=== PATIENT | female | born 1990 | race African-American/Black ===

== ENCOUNTER 2019-04-24 16:05 | Emergency (ER) | payer MEDICAID ==
[~2019-04-24] VITALS: Ht 165.1 cm; Wt 93.0 kg
--- NOTE | 2019-04-24 18:08 | PHYS DOC ---
Adult General Chief Complaint Chief Complaint: ABDOMINAL PAIN HPI HPI Patient is a 28 year old female who presents stating that her scar developed abscess. She woke up yesterday and started hurting and then it got bigger and popped and some pus started coming out. Rates her pain as 8 out of 10 in severity. Review of Systems Review of Systems Constitutional: Denies fever or chills [] Eyes: Denies change in visual acuity, redness, or eye pain [] HENT: Denies nasal congestion or sore throat [] Respiratory: Denies cough or shortness of breath [] Cardiovascular: No additional information not addressed in HPI [] GI: Denies abdominal pain, nausea, vomiting, bloody stools or diarrhea [] : Denies dysuria or hematuria [] Musculoskeletal: Denies back pain or joint pain [] Integument: Reports abscess to site. Neurologic: Denies headache, focal weakness or sensory changes [] Endocrine: Denies polyuria or polydipsia [] Complete systems were reviewed and found to be within normal limits, except as documented in this note. Current Medications Current Medications Current Medications Medications (Trade) Dose Ordered Sig/Ran Start Time Stop Time Status Last Admin Dose Admin Lidocaine HCl 20 ml 1X ONCE 04/24/19 18:15 04/24/19 18:33 DC 04/24/19 18:54 20 ML Allergies Allergies Allergies Coded Allergies Type Severity Reaction Last Updated Verified Sulfa (Sulfonamide Antibiotics) Allergy Intermediate Hives 04/24/19 Yes Physical Exam Physical Exam Constitutional: Well developed, well nourished, no acute distress, non-toxic appearance. [] HENT: Normocephalic, atraumatic, bilateral external ears normal, oropharynx moist, no oral exudates, nose normal. [] Eyes: PERRLA, EOMI, conjunctiva normal, no discharge. [] Neck: Normal range of motion, no tenderness, supple, no stridor. [] Cardiovascular:Heart rate regular rhythm, no murmur [] Lungs & Thorax: Bilateral breath sounds clear to auscultation [] Abdomen: Bowel sounds normal, soft, no tenderness, no masses, no pulsatile masses. [] Skin: abscess to scar. Back: No tenderness, no CVA tenderness. [] Extremities: No tenderness, no cyanosis, no clubbing, ROM intact, no edema. [] Neurologic: Alert and oriented X 3, normal motor function, normal sensory function, no focal deficits noted. [] Psychologic: Affect normal, judgement normal, mood normal. [] Current Patient Data Vital Signs Vital Signs Date Time Temp Pulse Resp B/P (MAP) Pulse Ox O2 Delivery O2 Flow Rate FiO2 04/24/19 17:45 99.2 87 14 144/94 (111) 99 Room Air 99.2 Lab Values Laboratory Tests Test 04/24/19 17:48 POC Urine HCG, Qualitative Hcg negative (Negative) EKG EKG [] Radiology/Procedures Radiology/Procedures Indication: abscess Procedure: The patient was positioned appropriately. Local anesthesia was 2% lidocaine. An incision was then made over the apex of the lesion and exudate material was expressed. The drainage cavity was irrigated and packed with sterile gauze. The patient�s tetanus status was already updated. The patient tolerated the procedure well. Complications: none.[] Course & Med Decision Making Course & Med Decision Making Pertinent Labs and Imaging studies reviewed. (See chart for details) Has an abscess where her was perform. Will perform I/D. Performed I/D and packed. Will place on Keflex and discharge home to return in 2 days to have packing removed. Dragon Disclaimer Dragon Disclaimer This electronic medical record was generated, in whole or in part, using a voice recognition dictation system. Departure Departure Impression: Primary Impression: Abscess Disposition: 01 HOME, SELF-CARE Condition: STABLE Referrals: NO PCP (PCP) Patient Instructions: Abscess, Abscess, Care After Additional Instructions: Thank you for visiting [facility]. We appreciate you trusting us with your care. If any additional problems come up don't hesitate to return to visit us. Please follow up with your primary care provider so they can plan additional care if needed and know about the problem that you had. If symptoms worsen come back to the Emergency Department. Any concerning symptoms that start such as chest pain, shortness of air, weakness or numbness on one side of the body, running high fevers or any other concerning symptoms return to the ER. Please return to have packing removed in 2 days. You have been prescribed an antibiotic today to help fight your infection. Please take all of the antibiotic as directed. If after 48 hours the infection is not improving, please return for more care. If the infection worsens, return to ER for additional care. Scripts Cephalexin (KEFLEX) 500 Mg Capsule 1 CAP PO BID for 7 Days, #14 CAP Prov: AIDAN COLLAZO APRN 04/24/19 AIDAN COLLAZO APRN Apr 24, 2019 18:08
[2019-04-24] MEDS ORDERED: LIDOCAINE 2% 20 ML VIAL. IJ ONE (18:15)
[2019-04-24] MEDS ORDERED: CEPH-264 PO (19:21)
[2019-04-24 19:30] VITALS: BP 153/81
[2019-04-26] MEDS ORDERED: HYDR-3164 PO (19:39)
== END 2019-04-24 19:50 | disposition home or self-care (01) ==
LOC: ER 16:05
DX: O86.00 Infection of obstetric surgical wound, unspecified (principal); Z88.2 Allergy status to sulfonamides
CPT/HCPCS: 10060; 81025; 99283; J2001

== ENCOUNTER 2019-09-16 12:59 | Emergency (ER) | payer BC, MEDICAID ==
[~2019-09-16 12:59] MED LIST: CEPH-264 PO; HYDR-3164 PO
[2019-09-16 13:51] LABS: BILIRUBIN,URINE NEGATIVE (NEG); CLARITY,URINE CLEAR; COLOR,URINE RED; NITRITE,URINE NEGATIVE (NEG); PH,URINE 6.5; PROTEIN,URINE 30 mg/dL (NEG-TRACE); UROBILINOGEN,URINE 0.2 mg/dL (0.2 mg/dL)
[2019-09-16 14:05] LABS: BASO % 1 % (0-3); EOS # 0.3 x10^3/uL (0.0-0.7); EOS % 3 % (0-3); HEMATOCRIT 37.7 % (36.0-47.0); HEMOGLOBIN 12.7 g/dL (12.0-15.5); LYMPH # 1.8 x10^3/uL (1.0-4.8); LYMPH % 19 % (24-48); MEAN CORPUSCULAR HEMOGLOBIN 32 pg (25-35); MEAN CORPUSCULAR HGB CONC 34 g/dL (31-37); MEAN CORPUSCULAR VOLUME 94 fL (79-100); MONO # 1.1 x10^3/uL (0.0-1.1); MONO % 11 % (0-9); NEUT # 6.2 x10^3/uL (1.8-7.7); NEUT % 66 % (31-73); PLATELET COUNT 244 x10^3/uL (140-400); RED BLOOD COUNT 4.03 x10^6/uL (3.50-5.40); RED CELL DISTRIBUTION WIDTH 14.1 % (11.5-14.5); WHITE BLOOD COUNT 9.4 x10^3/uL (4.0-11.0)
[2019-09-16 14:12] LABS: CALCIUM 9.3 mg/dL (8.5-10.1); CREATININE 0.8 mg/dL (0.6-1.0); GFR 103.3; POTASSIUM 4.4 mmol/L (3.5-5.1)
[2019-09-16 14:16] LABS: ALBUMIN 3.6 g/dL (3.4-5.0); ALBUMIN/GLOBULIN RATIO 1.1 (1.0-1.7); TOTAL BILIRUBIN 0.2 mg/dL (0.2-1.0)
--- NOTE | 2019-09-16 14:29 | RAD ---
OB ultrasound less than 14 weeks to include transabdominal and transvaginal imaging 09/16/2019 CLINICAL HISTORY: First trimester with vaginal bleeding. TECHNIQUE: Using the distended urinary bladder as a sonographic window, a real-time ultrasound examination of the pelvis was performed. Additionally in an attempt to better evaluate the uterus and adnexa, a transvaginal ultrasound study was performed. Multiple images were obtained. The uterus is within normal limits in size. It measures 11.9 x 6.4 x 5.3 cm in longitudinal, transverse, and AP dimensions. No focal abnormality of the uterus is seen. The endometrial echo complex is heterogeneous. It measures 1.3 cm in thickness. No gestational sac is seen within the endometrial canal of the uterus. Both ovaries are within normal limits in size and echogenicity. The right ovary measures 3.4 x 1.9 x 1.7 cm in size. The left ovary measures 4.4 x 3.1 x 2.0 cm in size. A very small amount of free fluid is seen within the pelvis. No adnexal mass is seen. IMPRESSION: Essentially negative pelvic ultrasound. No IUP is seen. This finding could be seen with a very early IUP, missed spontaneous or possibly due to an occult ectopic . Clinical correlation and correlation with the patient's serial beta hCG level is recommended. Electronically signed by: Deyvi Murray MD (09/16/2019 2:26 PM) [facility]
[2019-09-16] MEDS ORDERED: ACETAMINOPHEN 500 MG TABLET PO ONE (14:30)
[2019-09-16 14:31] LABS: SQUAMOUS EPITHELIAL CELL,UR MOD /LPF
[2019-09-16 14:32] LABS: RBC,URINE TNTC /HPF (0-2)
[2019-09-16 14:33] LABS: BACTERIA,URINE 0 /HPF (0-FEW)
--- NOTE | 2019-09-16 14:47 | PHYS DOC ---
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 Review of Systems Review of Systems GI: Cramping abdominal pain, denies nausea, vomiting, bloody stools or diarrhea [] : Vaginal bleeding. Denies dysuria or hematuria [] All other systems were reviewed and found to be within normal limits, except as documented in this note. Current Medications Current Medications Current Medications Medications (Trade) Dose Ordered Sig/Ran Start Time Stop Time Status Last Admin Dose Admin Acetaminophen (Tylenol) 1,000 mg 1X ONCE 09/16/19 14:30 09/16/19 14:32 DC 09/16/19 15:21 1,000 MG Allergies Allergies Allergies Coded Allergies Type Severity Reaction Last Updated Verified Sulfa (Sulfonamide Antibiotics) Allergy Intermediate Hives 04/24/19 Yes Physical Exam Physical Exam Constitutional: Well developed, well nourished, no acute distress, non-toxic appearance. [] HENT: Normocephalic, atraumatic, bilateral external ears normal, oropharynx moist, no oral exudates, nose normal. [] Eyes: PERRLA, EOMI, conjunctiva normal, no discharge. [] Neck: Normal range of motion, no tenderness, supple, no stridor. [] Cardiovascular:Heart rate regular rhythm, no murmur [] Lungs & Thorax: Bilateral breath sounds clear to auscultation [] Abdomen: Bowel sounds normal, soft, no tenderness, no masses, no pulsatile mass es. [] Skin: Warm, dry, no erythema, no rash. [] Back: No tenderness, no CVA tenderness. [] Extremities: No tenderness, no cyanosis, no clubbing, ROM intact, no edema. [] Neurologic: Alert and oriented X 3, normal motor function, normal sensory function, no focal deficits noted. [] Psychologic: Affect normal, judgement normal, mood normal. Normal Physical Exam[] Current Patient Data Vital Signs Vital Signs Date Time Temp Pulse Resp B/P (MAP) Pulse Ox O2 Delivery O2 Flow Rate FiO2 1/18/20 13:13 98.7 100 20 153/75 (101) 100 Room Air 98.7 Lab Values Laboratory Tests Test 09/16/19 13:11 09/16/19 13:15 09/16/19 13:48 Urine Collection Type Unknown Urine Color Red Urine Clarity Clear Urine pH 6.5 Urine Specific [place] 1.025 Urine Protein 30 mg/dL (NEG-TRACE) Urine Glucose (UA) Negative mg/dL (NEG) Urine Ketones (Stick) Trace mg/dL (NEG) Urine Blood Large (NEG) Urine Nitrite Negative (NEG) Urine Bilirubin Negative (NEG) Urine Urobilinogen Dipstick 0.2 mg/dL (0.2 mg/dL) Urine Leukocyte Esterase Small (NEG) Urine RBC Tntc /HPF (0-2) Urine WBC 11-20 /HPF (0-4) Urine Squamous Epithelial Cells Mod /LPF Urine Bacteria 0 /HPF (0-FEW) Urine Mucus Marked /LPF POC Urine HCG, Qualitative Hcg positive (Negative) White Blood Count 9.4 x10^3/uL (4.0-11.0) Red Blood Count 4.03 x10^6/uL (3.50-5.40) Hemoglobin 12.7 g/dL (12.0-15.5) Hematocrit 37.7 % (36.0-47.0) Mean Corpuscular Volume 94 fL (79-100) Mean Corpuscular Hemoglobin 32 pg (25-35) Mean Corpuscular Hemoglobin Concent 34 g/dL (31-37) Red Cell Distribution Width 14.1 % (11.5-14.5) Platelet Count 244 x10^3/uL (140-400) Neutrophils (%) (Auto) 66 % (31-73) Lymphocytes (%) (Auto) 19 % (24-48) L Monocytes (%) (Auto) 11 % (0-9) H Eosinophils (%) (Auto) 3 % (0-3) Basophils (%) (Auto) 1 % (0-3) Neutrophils # (Auto) 6.2 x10^3/uL (1.8-7.7) Lymphocytes # (Auto) 1.8 x10^3/uL (1.0-4.8) Monocytes # (Auto) 1.1 x10^3/uL (0.0-1.1) Eosinophils # (Auto) 0.3 x10^3/uL (0.0-0.7) Basophils # (Auto) 0.0 x10^3/uL (0.0-0.2) Maternal Serum HCG Beta Subunit 54349 mIU/mL (0-5) H Sodium Level 140 mmol/L (136-145) Potassium Level 4.4 mmol/L (3.5-5.1) Chloride Level 103 mmol/L (98-107) Carbon Dioxide Level 27 mmol/L (21-32) Anion Gap 10 (6-14) Blood Urea Nitrogen 6 mg/dL (7-20) L Creatinine 0.8 mg/dL (0.6-1.0) Estimated GFR (Cockcroft-Gault) 103.3 BUN/Creatinine Ratio 8 (6-20) Glucose Level 83 mg/dL (70-99) Calcium Level 9.3 mg/dL (8.5-10.1) Total Bilirubin 0.2 mg/dL (0.2-1.0) Aspartate Amino Transferase (AST) 18 U/L (15-37) Alanine Aminotransferase (ALT) 20 U/L (14-59) Alkaline Phosphatase 39 U/L (46-116) L Total Protein 7.0 g/dL (6.4-8.2) Albumin 3.6 g/dL (3.4-5.0) Albumin/Globulin Ratio 1.1 (1.0-1.7) Laboratory Tests 09/16/19 13:48 Laboratory Tests 09/16/19 13:48 EKG EKG [] Radiology/Procedures Radiology/Procedures [] Impressions: [facility] [address] [place] [address] IMAGING REPORT Signed PATIENT: RUBEN SOLIZ ACCOUNT: [id number] : 1990 LOCATION: ER AGE: 29 SEX: F EXAM STATUS: PRE ER ORD. PHYSICIAN: CAMRON ZHOU APRN REASON: vag bleed in PROCEDURE: OB <14 WKS W/TV OB ultrasound less than 14 weeks to include transabdominal and transvaginal imaging 09/16/2019 CLINICAL HISTORY: First trimester with vaginal bleeding. TECHNIQUE: Using the distended urinary bladder as a sonographic window, a real-time ultrasound examination of the pelvis was performed. Additionally in an attempt to better evaluate the uterus and adnexa, a transvaginal ultrasound study was performed. Multiple images were obtained. The uterus is within normal limits in size. It measures 11.9 x 6.4 x 5.3 cm in longitudinal, transverse, and AP dimensions. No focal abnormality of the uterus is seen. The endometrial echo complex is heterogeneous. It measures 1.3 cm in thickness. No gestational sac is seen within the endometrial canal of the uterus. Both ovaries are within normal limits in size and echogenicity. The right ovary measures 3.4 x 1.9 x 1.7 cm in size. The left ovary measures 4.4 x 3.1 x 2.0 cm in size. A very small amount of free fluid is seen within the pelvis. No adnexal mass is seen. IMPRESSION: Essentially negative pelvic ultrasound. No IUP is seen. This finding could be seen with a very early IUP, missed spontaneous or possibly due to an occult ectopic . Clinical correlation and correlation with the patient's serial beta hCG level is recommended. Electronically signed by: Deyvi Soler MD (09/16/2019 2:26 PM) [facility] DICTATED and SIGNED BY: DEYVI SOLER MD DATE: 09/16/191425 Course & Med Decision Making Course & Med Decision Making Patient states she is approximately 7 weeks . She states that at 2:00 is when she began having abdominal cramping and since then has went through 2 pads with bright red blood and clots. Abdomen soft and nontender. Skin pink warm and dry. Alert and oriented. Ambulatory with steady gait. Speaks in full clear sentences. Vital signs within normal limits. Patient is tearful. She rates her pain a 6 out of 10. Patient states she took 4 mg of ibuprofen in the cramping started. I have educated the patient that since she is she should not take ibuprofen and only Tylenol. Patient does have a upcoming scheduled OB appointment which will be her first appointment next week. She denies recent fever, dysuria symptoms, Sexually transmitted disease concerns, abnormal vaginal discharge, headache, dizziness, syncope, chest pain, shortness of air, numbness or tingling. Pelvic Exam: Photographic Laboratory Technician present Abdomen: Nontender External Genitalia: Normal Skin Speculum: Normal vaginal mucosa, Blood cervical discharge, No clots, Cervix closed Bimanual: No adnexal masses or tenderness, No CMT A negative blood type. Rhogam ordered. IMPRESSION: Essentially negative pelvic ultrasound. No IUP is seen. This finding could be seen with a very early IUP, missed spontaneous or possibly due to an occult ectopic . Clinical correlation and correlation with the patient's serial beta hCG level is recommended. Dragon Disclaimer Dragon Disclaimer This electronic medical record was generated, in whole or in part, using a voice recognition dictation system. Departure Departure Impression: Primary Impression: Vaginal bleeding during Disposition: HOME, SELF-CARE Condition: STABLE Referrals: NO PCP (PCP) Patient Instructions: Vaginal Bleeding During , [id number] Additional Instructions: Follow-up with your OB doctor as scheduled. Take Tylenol for pain. CAMRON ZHOU APRN Sep 16, 2019 14:47
[2019-09-16 16:37] VITALS: BP 130/82
[2019-09-16 17:00] VITALS: BP 103/53
[2019-09-19 19:09] LABS: GC PROBE Negative (Negative)
== END 2019-09-16 16:41 | disposition home or self-care (01) ==
LOC: ER 12:59
DX: O46.91 Antepartum hemorrhage, unspecified, first trimester (principal); R10.9 Unspecified abdominal pain; Z98.890 Other specified postprocedural states; Z88.2 Allergy status to sulfonamides; Z3A.01 Less than 8 weeks gestation of pregnancy
CPT/HCPCS: 36415; 76801; 76817; 80053; 81001; 81025; 84702; 85025; 86850; 86900; 86901; 87086; 87491; 87591; 99285; J2791; Q0111

== ENCOUNTER 2019-10-12 10:19 | Emergency (ER) | payer BC ==
[~2019-10-12] VITALS: Ht 167.6 cm; Wt 95.4 kg
--- NOTE | 2019-10-12 10:56 | PHYS DOC ---
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 The patient was seen on September 16 this ER and told that she had a threatened miscarriage. The patient then went to her REGISTRY NURSE and was given the option of having it happen naturally are getting medication. She chose the natural route. Last week she's been having heavy amounts of vaginal bleeding and abdominal pain. The patient rates her pain as 8 out of 10 in severity. The patient is also having nausea, vomiting, diarrh ea. Her last menstrual period was on July 24. The patient also states she's been having dysuria. [id number]. Review of Systems Review of Systems Constitutional: Denies fever or chills [] Eyes: Denies change in visual acuity, redness, or eye pain [] HENT: Denies nasal congestion or sore throat [] Respiratory: Denies cough or shortness of breath [] Cardiovascular: No additional information not addressed in HPI [] GI: Reports abdominal pain, nausea, vomiting,and diarrhea [] : Reports dysuria and vaginal bleeding. Musculoskeletal: Denies back pain or joint pain [] Integument: Denies rash or skin lesions [] Neurologic: Denies headache, focal weakness or sensory changes [] Endocrine: Denies polyuria or polydipsia [] Complete systems were reviewed and found to be within normal limits, except as documented in this note. Current Medications Current Medications Current Medications Medications (Trade) Dose Ordered Sig/Ran Start Time Stop Time Status Last Admin Dose Admin Magnesium Sulfate/ Dextrose 100 ml @ 100 mls/hr 1X ONCE 10/12/19 12:15 10/12/19 13:14 10/12/19 12:09 100 MLS/HR Morphine Sulfate (Morphine Sulfate) 5 mg 1X STAT 10/12/19 12:32 10/12/19 12:34 DC Ondansetron HCl (Zofran) 4 mg 1X ONCE 10/12/19 11:00 10/12/19 11:01 DC 10/12/19 11:29 4 MG Sodium Chloride 1,000 ml @ 1,000 mls/hr 1X ONCE 10/12/19 11:00 10/12/19 11:59 DC 10/12/19 11:30 1,000 MLS/HR Allergies Allergies Allergies Coded Allergies Type Severity Reaction Last Updated Verified Sulfa (Sulfonamide Antibiotics) Allergy Intermediate Hives 04/24/19 Yes Physical Exam Physical Exam Constitutional: Well developed, well nourished, no acute distress, non-toxic appearance. [] HENT: Normocephalic, atraumatic, bilateral external ears normal, oropharynx moist, no oral exudates, nose normal. [] Eyes: PERRLA, EOMI, conjunctiva normal, no discharge. [] Neck: Normal range of motion, no tenderness, supple, no stridor. [] Cardiovascular:Heart rate regular rhythm, no murmur [] Lungs & Thorax: Bilateral breath sounds clear to auscultation [] Abdomen: Bowel sounds normal, soft, LLQ tenderness, no masses, no pulsatile masses. [] Skin: Warm, dry, no erythema, no rash. [] Neurologic: Alert and oriented X 3, normal motor function, normal sensory function, no focal deficits noted. [] Psychologic: Affect normal, judgement normal, mood normal. [] Current Patient Data Vital Signs Vital Signs Date Time Temp Pulse Resp B/P (MAP) Pulse Ox O2 Delivery O2 Flow Rate FiO2 10/12/19 11:06 80 124/77 (93) 97 Room Air 10/12/19 10:36 98.9 20 98.9 Lab Values Laboratory Tests Test 10/12/19 10:34 10/12/19 10:53 Urine Collection Type Unknown Urine Color Red Urine Clarity Bloody Urine pH Urine Specific [place] Urine Protein mg/dL (NEG-TRACE) Urine Glucose (UA) mg/dL (NEG) Urine Ketones (Stick) mg/dL (NEG) Urine Blood (NEG) Urine Nitrite (NEG) Urine Bilirubin (NEG) Urine Urobilinogen Dipstick mg/dL (0.2 mg/dL) Urine Leukocyte Esterase (NEG) Urine RBC Tntc /HPF (0-2) Urine WBC 0 /HPF (0-4) Urine Bacteria 0 /HPF (0-FEW) Urine Mucus Mod /LPF White Blood Count 7.0 x10^3/uL (4.0-11.0) Red Blood Count 3.87 x10^6/uL (3.50-5.40) Hemoglobin 12.1 g/dL (12.0-15.5) Hematocrit 35.8 % (36.0-47.0) L Mean Corpuscular Volume 93 fL (79-100) Mean Corpuscular Hemoglobin 31 pg (25-35) Mean Corpuscular Hemoglobin Concent 34 g/dL (31-37) Red Cell Distribution Width 14.5 % (11.5-14.5) Platelet Count 310 x10^3/uL (140-400) Neutrophils (%) (Auto) 64 % (31-73) Lymphocytes (%) (Auto) 25 % (24-48) Monocytes (%) (Auto) 8 % (0-9) Eosinophils (%) (Auto) 3 % (0-3) Basophils (%) (Auto) 0 % (0-3) Neutrophils # (Auto) 4.5 x10^3/uL (1.8-7.7) Lymphocytes # (Auto) 1.7 x10^3/uL (1.0-4.8) Monocytes # (Auto) 0.6 x10^3/uL (0.0-1.1) Eosinophils # (Auto) 0.2 x10^3/uL (0.0-0.7) Basophils # (Auto) 0.0 x10^3/uL (0.0-0.2) Maternal Serum HCG Beta Subunit 208 mIU/mL (0-5) H Sodium Level 140 mmol/L (136-145) Potassium Level 3.9 mmol/L (3.5-5.1) Chloride Level 104 mmol/L (98-107) Carbon Dioxide Level 26 mmol/L (21-32) Anion Gap 10 (6-14) Blood Urea Nitrogen 7 mg/dL (7-20) Creatinine 0.8 mg/dL (0.6-1.0) Estimated GFR (Cockcroft-Gault) 103.3 BUN/Creatinine Ratio 9 (6-20) Glucose Level 90 mg/dL (70-99) Lactic Acid Level 0.5 mmol/L (0.4-2.0) Calcium Level 9.0 mg/dL (8.5-10.1) Magnesium Level 1.6 mg/dL (1.8-2.4) L Total Bilirubin 0.2 mg/dL (0.2-1.0) Aspartate Amino Transferase (AST) 11 U/L (15-37) L Alanine Aminotransferase (ALT) 14 U/L (14-59) Alkaline Phosphatase 40 U/L (46-116) L Total Protein 7.4 g/dL (6.4-8.2) Albumin 3.8 g/dL (3.4-5.0) Albumin/Globulin Ratio 1.1 (1.0-1.7) Laboratory Tests 10/12/19 10:53 Laboratory Tests 10/12/19 10:53 EKG EKG [] Radiology/Procedures Radiology/Procedures [][facility] [address] [place], [place] [id number] IMAGING REPORT Signed PATIENT: RUBEN SOLIZ ACCOUNT: [id number] : 1990 LOCATION: ER AGE: 29 SEX: F EXAM STATUS: REG ER ORD. PHYSICIAN: AIDAN COLLAZO APRN REASON: vaginal bleeding, abd pain (LLQ) PROCEDURE: OB <14 WKS W/TV Transabdominal and transvaginal sonography of the pelvis-OB ultrasound study less than 14 weeks Clinical indications: Vaginal bleeding. Left lower quadrant abdominal pain. The patient states positive test. COMPARISON: September 16, 2019. Transabdominal sonography: Uterus is anteverted in position. Endometrial canal is poorly visualized due to a relatively empty urinary bladder. The right ovary is not visualized. Therefore, transvaginal sonography will be performed. The left ovary is visualized and measures 3.5 cm and 2.1 cm and 3.0 cm in size and is normal. Color Doppler flow is seen within left ovary. Transvaginal sonography: The endometrial canal is echogenic and thickened measuring up to 17 mm. Small cysts are seen within it. Hyperemia is evident. This was seen previously and measured 13 mm. No intrauterine gestational sac or fetus or heartbeat is seen. There is a small 14 mm fibroid of the mid body of the left side of the uterus. No free fluid is seen within the cul-de-sac. Nabothian cyst of the cervix is seen. This was seen previously. The right ovary measures 2.4 cm and 2.6 cm and 1.9 cm in size and is normal. Color Doppler flow is seen within the right ovary. The left ovary is not visualized. No adnexal mass is seen. IMPRESSION: Thickened echogenic endometrium with small cysts. This is hypervascular. This may be seen with state and therefore a very early normal or an ectopic or spontaneous are possibilities. Another possibility is trophoblastic disease. This is a strong possibility given the persistent vaginal bleeding and no identified on previous sonogram dated September 16, 2019. Correlation with serial quantitative beta-hCG studies is needed. No adnexal mass is seen. No free fluid is seen within the pelvis. Electronically signed by: Fabián Decker MD (10/12/2019 11:41 AM) [facility] DICTATED and SIGNED BY: FABIÁN DECKER MD DATE: 10/12/19 1141 Course & Med Decision Making Course & Med Decision Making Pertinent Labs and Imaging studies reviewed. (See chart for details) Will get labs, lactic, ultrasound, UA, and give supportive care. Labs shows an Beta HCG of 202 down from 39,000 on Sep 16. Labs are otherwise unremarkable with exception of magnesium of 1.6--Will give magnesium. Blood Type is A negative. Patient was given Rhogam during her last visit. Discussed case with Dr. Batres, OB who suggests putting patient on Doxycycline 100 mg BID x 7 days and Provera 10 mg BID x 5 days. Will d/c to follow up. Dragon Disclaimer Dragon Disclaimer This electronic medical record was generated, in whole or in part, using a voice recognition dictation system. Departure Departure Impression: Primary Impression: Incomplete miscarriage Disposition: 01 HOME, SELF-CARE Condition: STABLE Referrals: NO PCP (PCP) NICCI NEGRON MD Patient Instructions: Incomplete Miscarriage Additional Instructions: Thank you for [facility]. We appreciate you trusting us with your care. If any additional problems come up don't hesitate to return to visit us. Please follow up with your primary care provider so they can plan additional care if needed and know about the problem that you had. If symptoms worsen come back to the Emergency Department. Any concerning symptoms that start such as chest pain, shortness of air, weakness or numbness on one side of the body, running high fevers or any other concerning symptoms return to the ER. Please follow up to have your HCG rechecked. Scripts Hydrocodone/Apap 5-325 (NORCO 5-325 TABLET) 1 Each Tablet 1 TAB PO PRN Q6HRS PRN for PAIN for 3 Days, #10 TAB 0 Refills Prov: AIDAN COLLAZO APRN 10/12/19 Ondansetron (ONDANSETRON ODT) 4 Mg Tab.rapdis 1 TAB PO PRN Q6-8HRS PRN for NAUSEA, #20 TAB Prov: AIDAN COLLAZO APRN 10/12/19 Doxycycline Hyclate (DOXYCYCLINE HYCLATE) 100 Mg Capsule 1 CAP PO BID for 7 Days, #14 CAP Prov: AIDAN COLLAZO APRN 10/12/19 Medroxyprogesterone Acetate (PROVERA) 10 Mg Tablet 1 TAB PO BID for 5 Days, #10 TAB Prov: AIDAN COLLAZO APRN 10/12/19 AIDAN COLLAZO APRN Oct 12, 2019 10:55
[2019-10-12] MEDS ORDERED: IV NORMAL SALINE 1000ML BAG 1,000 ML IV ONE (11:00)
[2019-10-12] MEDS ORDERED: ONDANSETRON PF 4 MG/2 ML VIAL. IV ONE (11:00)
[2019-10-12 11:13] LABS: BASO % 0 % (0-3); EOS # 0.2 x10^3/uL (0.0-0.7); EOS % 3 % (0-3); HEMATOCRIT 35.8 % (36.0-47.0); HEMOGLOBIN 12.1 g/dL (12.0-15.5); LYMPH # 1.7 x10^3/uL (1.0-4.8); LYMPH % 25 % (24-48); MEAN CORPUSCULAR HEMOGLOBIN 31 pg (25-35); MEAN CORPUSCULAR HGB CONC 34 g/dL (31-37); MEAN CORPUSCULAR VOLUME 93 fL (79-100); MONO # 0.6 x10^3/uL (0.0-1.1); MONO % 8 % (0-9); NEUT # 4.5 x10^3/uL (1.8-7.7); NEUT % 64 % (31-73); PLATELET COUNT 310 x10^3/uL (140-400); RED BLOOD COUNT 3.87 x10^6/uL (3.50-5.40); RED CELL DISTRIBUTION WIDTH 14.5 % (11.5-14.5)
[2019-10-12 11:14] LABS: CREATININE 0.8 mg/dL (0.6-1.0); GFR 103.3; POTASSIUM 3.9 mmol/L (3.5-5.1)
[2019-10-12 11:20] LABS: ALBUMIN 3.8 g/dL (3.4-5.0); ALBUMIN/GLOBULIN RATIO 1.1 (1.0-1.7); MAGNESIUM 1.6 mg/dL (1.8-2.4); TOTAL BILIRUBIN 0.2 mg/dL (0.2-1.0); TOTAL PROTEIN 7.4 g/dL (6.4-8.2)
[2019-10-12 11:23] LABS: CLARITY,URINE BLOODY; COLOR,URINE RED
[2019-10-12 11:24] LABS: BACTERIA,URINE 0 /HPF (0-FEW); RBC,URINE TNTC /HPF (0-2); WBC,URINE 0 /HPF (0-4)
--- NOTE | 2019-10-12 11:43 | RAD ---
Transabdominal and transvaginal sonography of the pelvis-OB ultrasound study less than 14 weeks Clinical indications: Vaginal bleeding. Left lower quadrant abdominal pain. The patient states positive test. COMPARISON: September 16, 2019. Transabdominal sonography: Uterus is anteverted in position. Endometrial canal is poorly visualized due to a relatively empty urinary bladder. The right ovary is not visualized. Therefore, transvaginal sonography will be performed. The left ovary is visualized and measures 3.5 cm and 2.1 cm and 3.0 cm in size and is normal. Color Doppler flow is seen within left ovary. Transvaginal sonography: The endometrial canal is echogenic and thickened measuring up to 17 mm. Small cysts are seen within it. Hyperemia is evident. This was seen previously and measured 13 mm. No intrauterine gestational sac or fetus or heartbeat is seen. There is a small 14 mm fibroid of the mid body of the left side of the uterus. No free fluid is seen within the cul-de-sac. Nabothian cyst of the cervix is seen. This was seen previously. The right ovary measures 2.4 cm and 2.6 cm and 1.9 cm in size and is normal. Color Doppler flow is seen within the right ovary. The left ovary is not visualized. No adnexal mass is seen. IMPRESSION: Thickened echogenic endometrium with small cysts. This is hypervascular. This may be seen with state and therefore a very early normal or an ectopic or spontaneous are possibilities. Another possibility is trophoblastic disease. This is a strong possibility given the persistent vaginal bleeding and no identified on previous sonogram dated September 16, 2019. Correlation with serial quantitative beta-hCG studies is needed. No adnexal mass is seen. No free fluid is seen within the pelvis. Electronically signed by: Fab Decker MD (10/12/2019 11:41 AM) [facility]
[2019-10-12] MEDS ORDERED: MAGNESIUM SULFATE 1GM 100 ML IV ONE (12:15)
[2019-10-12] MEDS ORDERED: MORPHINE SULFATE 10 MG/ML VIAL. IV STA (12:32)
[2019-10-12] MEDS ORDERED: DOXY100C2 PO (12:35)
[2019-10-12] MEDS ORDERED: MEDR10TA PO (12:35)
[2019-10-12] MEDS ORDERED: ONDA4TAB12 PO (12:36)
[2019-10-12] MEDS ORDERED: HYDR-3164 PO (12:48)
[2019-10-12 13:06] VITALS: BP 114/74
== END 2019-10-12 13:34 | disposition home or self-care (01) ==
LOC: ER 10:19
DX: O03.4 Incomplete spontaneous abortion without complication (principal); O46.91 Antepartum hemorrhage, unspecified, first trimester; R10.32 Left lower quadrant pain; R11.2 Nausea with vomiting, unspecified; F17.210 Nicotine dependence, cigarettes, uncomplicated; Z88.2 Allergy status to sulfonamides; Z98.890 Other specified postprocedural states; Z79.899 Other long term (current) drug therapy; Z3A.01 Less than 8 weeks gestation of pregnancy
CPT/HCPCS: 36415; 76801; 76817; 80053; 81001; 83605; 83735; 84702; 85025; 86850; 86900; 86901; 96361; 96365; 96375; 99285; J2270; J2405; J3475; J7030

== ENCOUNTER 2021-02-02 09:51 | Emergency (ER) | payer BC ==
[~2021-02-02 09:51] MED LIST changes: +DOXY100C2 PO; +MEDR10TA PO; +ONDA4TAB12 PO
== END 2021-02-02 10:11 | disposition left against medical advice (07) ==
LOC: ER 09:51
DX: J45.909 Unspecified asthma, uncomplicated (principal); Z53.21 Procedure and treatment not carried out due to patient leaving prior to being seen by health care provider

== ENCOUNTER → 2022-01-23 | Outpatient (CLI) | payer OTHER ==
[~2022-01-23] MED LIST changes: -DOXY100C2 PO; +DOXY100C3 PO
== END ==
LOC: LAB 11:06
PROVIDERS: ATTEND Surgery
DX: Z01.812 Encounter for preprocedural laboratory examination (principal); Z20.822 Contact with and (suspected) exposure to COVID-19
CPT/HCPCS: U0003